=== PATIENT | male | born 1975 | race American Indian/Alaskan Native ===

== ENCOUNTER 2021-03-19 20:33 | Emergency (ER) | payer SELFPAY ==
--- NOTE | 2021-03-19 23:49 | Event Note ---
ED Screening Note Date of service: 03/19/21 Time: 23:40 ED Screening Note: 45-year-old male patient with history of hypertension presents to the emergency department with complaints of dizziness, nausea, and shortness of breath for 3 days. Symptoms occur on an episodic basis without identifiable precipitant. Patient has been compliant with his antihypertensive medication regimen. No recent changes to the dosing or frequency of his medication. No history of similar symptoms. Hypertensive in triage. General: Awake, appropriately interactive, no acute distress. Eyes: Pupils equal round and reactive to light. Mild bilateral horizontal nystagmus, right > left. Neck: Supple. Full range of motion intact. Cardiovascular: Normal peripheral perfusion. Pulmonary: No respiratory distress. Patient is speaking normally without use of accessory muscles. Skin: No apparent rashes or lesions. Neurological: No facial asymmetry. Speech is clear. Follows commands. Patient is alert and oriented. Musculoskeletal: Moves all four extremities spontaneously with normal range of motion. Psych: Cooperative. Appropriate mood and affect. Labs, EKG, chest x-ray ordered. Decision to pursue further work-up deferred to additional ED providers following full history and complete physical exam. I have greeted and performed a focused rapid initial assessment of this patient. A comprehensive ED assessment and evaluation of the patient, analysis of all test results, and completion of the medical decision-making process will be conducted by additional ED providers. This initial assessment/diagnostic orders/clinical plan/treatment(s) is/are subject to change based on patients health status, clinical progression and re-assessment. Further treatment and workup at subsequent clinical provider's discretion. Patient/guardian urged not to elope from the ED as their condition may be serious if not clinically assessed and managed.
[2021-03-20 00:03] LABS: Basophils # (Auto) 0.1 K/mm3 (0.0-0.1); Basophils % (Auto) 0.9 % (0.0-1.8); Eosinophils # (Auto) 0.1 K/mm3 (0.0-0.4); Eosinophils % (Auto) 1.2 % (0.0-4.3); Hematocrit 42.1 % (35.5-45.6); Hemoglobin 14.7 gm/dl (11.8-15.2); Lymphocytes # (Auto) 3.9 K/mm3 (1.2-5.4); Lymphocytes % (Auto) 44.3 % (13.4-35.0); Mean Corpuscular HGB Conc 35 % (32-34); Mean Corpuscular Volume 81 fl (84-94); Monocytes # (Auto) 0.5 K/mm3 (0.0-0.8); Monocytes % (Auto) 5.7 % (0.0-7.3); Platelet Count 437 K/mm3 (140-440); Red Blood Count 5.18 M/mm3 (3.65-5.03); Red Cell Distribution Width 14.1 % (13.2-15.2)
--- NOTE | 2021-03-20 00:24 | Emergency Department Report ---
HPI - General Chief Complaint: Dizziness Time Seen by Provider: 03/20/21 00:02 - HPI HPI: MSE 6 The patient is a 45-year-old male present with a chief complaint of dizziness and nausea. The patient states he received his first Pfizer Covid vaccination 12 days ago. The patient states 6 days after that 1 hour he developed dizziness shortness of breath and nausea with dry heaving. The patient states after 1 hour the symptoms resolved and he was asymptomatic for the next 3 days. 3 days ago the patient states his symptoms returned always in the morning for 1 hour including the shortness of breath, dizziness and nausea with dry heaving. Patient states today he developed a fever to 101 F. When asked how he is feeling now the patient states he feels "good." ED Past Medical Hx - Past Medical History Hx Hypertension: Yes - Surgical History Past Surgical History?: No - Family History Family history: no significant - Social History Smoking Status: Never Smoker Substance Use Type: None (Denies illicit drug use) - Medications Home Medications: Home Medications Medication Instructions Recorded Confirmed Last Taken Type Meclizine HCl 25 mg PO TID PRN #20 tablet 03/20/21 Unknown Rx Ondansetron [Zofran ODT TAB] 8 mg PO Q8HR #20 tab.rapdis 03/20/21 Unknown Rx ED Review of Systems ROS: Stated complaint: NOT FEELING WELL Other details as noted in HPI Constitutional: fever Eyes: denies: eye pain ENT: denies: throat pain Respiratory: shortness of breath. denies: cough Cardiovascular: denies: chest pain Endocrine: no symptoms reported Gastrointestinal: nausea Genitourinary: denies: dysuria Musculoskeletal: denies: back pain Neurological: vertigo. denies: headache Physical Exam - Physical Exam Vital Signs: Vital Signs 03/19/21 23:04 Temperature 99.0 F Pulse Rate 74 Respiratory 16 Rate Blood Pressure 171/96 O2 Sat by Pulse 98 Oximetry Physical Exam: GENERAL: The patient is well-developed well-nourished male sitting on chair not appearing to be in acute distress. [] HEENT: Normocephalic. Atraumatic. Extraocular motions are intact. Patient has moist mucous membranes. No nystagmus noted NECK: Supple. No meningitic signs are noted. There is no adenopathy noted. CHEST/LUNGS: Clear to auscultation. There is no respiratory distress noted. HEART/CARDIOVASCULAR: Regular. There is no tachycardia. There is no gallop rub or murmur. ABDOMEN: Abdomen is soft, nontender. Patient has normal bowel sounds. There is no abdominal distention. SKIN: There is no rash. There is no edema. There is no diaphoresis. NEURO: The patient is awake, alert, and oriented. The patient is cooperative. The patient has no focal neurologic deficits. The patient has normal speech. Cranial nerves II through XII grossly intact. There is no dysmetria noted with [id number]-clps bilaterally MUSCULOSKELETAL: There is no evidence of acute injury. ED Course Vital Signs 03/19/21 23:04 Temperature 99.0 F Pulse Rate 74 Respiratory 16 Rate Blood Pressure 171/96 O2 Sat by Pulse 98 Oximetry ED Medical Decision Making - Lab Data Result diagrams: 03/19/21 23:44 03/19/21 23:44 Laboratory Tests 03/19/21 03/19/21 03/19/21 23:44 23:44 23:44 WBC 8.8 RBC 5.18 H Hgb 14.7 Hct 42.1 MCV 81 L MCH 28 MCHC 35 H RDW 14.1 Plt Count 437 Lymph % (Auto) 44.3 H [place] % (Auto) 5.7 Eos % (Auto) 1.2 Baso % (Auto) 0.9 Lymph # (Auto) 3.9 [place] # (Auto) 0.5 Eos # (Auto) 0.1 Baso # (Auto) 0.1 Seg Neutrophils % 47.9 Seg Neutrophils # 4.2 D-Dimer < 135.00 Sodium 139 Potassium 4.4 Chloride 100.4 Carbon Dioxide 28 Anion Gap 15 BUN 8 L Creatinine 0.9 Estimated GFR > 60 BUN/Creatinine Ratio 9 Glucose 115 H Calcium 10.2 Magnesium 2.20 Total Bilirubin 0.50 AST 23 ALT 37 Alkaline Phosphatase 71 Troponin T < 0.010 Total Protein 8.2 Albumin 5.3 H Albumin/Globulin Ratio 1.8 - EKG Data -: EKG Interpreted by Me EKG shows normal: sinus rhythm Rate: normal - EKG Data When compared to previous EKG there are: previous EKG unavailable Interpretation: other (No ischemic changes seen) - Radiology Data Radiology results: report reviewed (CT head), image reviewed (CT head, chest x- ray) interpreted by me: Chest x-ray-no definite focal infiltrates, no pneumothorax [facility] [address] [place] [address] Cat Scan Report Signed Patient: OVIDIO AL MR#: [id number] 9 : 1975 Acct:[id number] Age/Sex: 45 / M ADM Date: 03/19/21 Loc: ED Attending Dr: Ordering Physician: DANIELA EDUARDO MD Date of Service: 03/20/21 Procedure(s): CT head/brain wo con Accession Number(s): [id number] cc: DANIELA EDUARDO MD CT HEAD WITHOUT CONTRAST INDICATION: Dizziness, nausea TECHNIQUE: All CT scans at this location are performed using CT dose reduction for ALARA by means of automated exposure control. COMPARISON: None available. FINDINGS: BRAIN: No hemorrhage or mass effect are seen. No evidence of acute infarction is noted. ORBITS: Normal as visualized. SOFT TISSUES OF HEAD: Normal. CALVARIUM: Normal. VISUALIZED PARANASAL SINUSES AND MASTOID AIR CELLS: Mucosal thickening and airspace filling are seen in the ethmoid sinuses bilaterally. 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 No air- fluid levels are seen. ADDITIONAL FINDINGS: None. IMPRESSION: No acute intracranial abnormality. Signer Name: Thiago Velásquez MD Signed: 03/20/2021 1:21 AM Workstation Name: [id number] Transcribed By: GJ Dictated By: Thiago Velásquez MD Electronically Authenticated By: Thiago Velásquez MD Signed Date/Time: 03/20/21 012 DD/ TD/TT: Print Cancel - Differential Diagnosis Vaccination reaction, PE, intracranial hemorrhage, electrolyte imbalance Critical care attestation.: If time is entered above; I have spent that time in minutes in the direct care of this critically ill patient, excluding procedure time. ED Disposition Clinical Impression: Vaccination reaction, Nausea, Dizziness Disposition: 01 HOME / SELF CARE / HOMELESS Is pt being admited?: No Does the pt Need Aspirin: No Condition: Stable Instructions: Nausea and Vomiting, Adult, Dizziness, [id number] Additional Instructions: Return to the emergency department should you develop worsening symptoms, inability to tolerate food or liquids, high fever or any other concerns Prescriptions: Meclizine HCl 25 mg PO TID PRN #20 tablet PRN Reason: Vertigo Ondansetron [Zofran ODT TAB] 8 mg PO Q8HR #20 tab.dajuan Time of Disposition: 02:55
[2021-03-20 00:28] LABS: Alanine Aminotransferase 37 units/L (7-56); Albumin 5.3 g/dL (3.9-5); BUN/Creatinine Ratio 9; Blood Urea Nitrogen 8 mg/dL (9-20); Calcium 10.2 mg/dL (8.4-10.2); Hemolysis Index 4
--- NOTE | 2021-03-20 01:26 | Cat Scan Report ---
CT HEAD WITHOUT CONTRAST INDICATION: Dizziness, nausea TECHNIQUE: All CT scans at this location are performed using CT dose reduction for ALARA by means of automated exposure control. COMPARISON: None available. FINDINGS: BRAIN: No hemorrhage or mass effect are seen. No evidence of acute infarction is noted. ORBITS: Normal as visualized. SOFT TISSUES OF HEAD: Normal. CALVARIUM: Normal. VISUALIZED PARANASAL SINUSES AND MASTOID AIR CELLS: Mucosal thickening and airspace filling are seen in the ethmoid sinuses bilaterally. 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 No air-fluid le vels are seen. ADDITIONAL FINDINGS: None. IMPRESSION: No acute intracranial abnormality. Signer Name: Thiago Velásuqez MD Signed: 03/20/2021 1:21 AM Workstation Name: [id number]
--- NOTE | 2021-03-20 02:31 | XRay Report ---
CHEST 2 VIEWS INDICATION / CLINICAL INFORMATION: SOB STUDY TIME: 46 COMPARISON: None available. FINDINGS: SUPPORT DEVICES: None. HEART / MEDIASTINUM: No significant abnormality. LUNGS / PLEURA: No significant pulmonary or pleural abnormality. No pneumothorax. ADDITIONAL FINDINGS: No significant additional findings. Signer Name: Thiago Velásquez MD Signed: 03/20/2021 2:26 AM Workstation Name: [id number]
[2021-03-20 03:31] VITALS: BP 148/72
--- NOTE | 2021-03-25 14:16 | Electrocardiograph Report ---
[facility] Test Date: 2021-03-20 Test Time: 02:49:45 Pat Name: OVIDIO AL Department: Room: Gender: M Senior [employer] Analyst: RADHA : 1975 Requested By: ESA DOBBINS Order Number: [id number] Reading MD: Ken Kelly Measurements Intervals [place] Rate: 60 P: 44 MI: 166 QRS: 53 QRSD: 86 T: 53 QT: 410 QTc: 409 Interpretive Statements Sinus rhythm Consider possible old anteroseptal infarct No previous ECG available for comparison Electronically Signed On 03-25-2021 14:15:40 EDT by Ken Kelly
== END 2021-03-20 02:59 | disposition home or self-care (01) ==
LOC: ED 20:33
DX: T88.1XXA Other complications following immunization, not elsewhere classified, initial encounter (principal); R11.0 Nausea; R42 Dizziness and giddiness
CPT/HCPCS: 36415; 70450; 71046; 80053; 83735; 84484; 85025; 85379; 93005; 99284